=== PATIENT | female | born 1945 ===

== ENCOUNTER 2021-10-18 13:05 | Inpatient (IN) | payer OTHER ==
[~2021-10-18] VITALS: Ht 167.6 cm; Wt 39.0 kg
[2021-10-18 13:32] LABS: PCO2 Arterial 44.5 mmHg (35-45); PO2 Arterial 64.8 mmHg (80-100); pH Blood Arterial 7.39 (7.35-7.45)
[2021-10-18 13:40] LABS: BASOPHILS ABSOLUTE AUTO 0.07 K/mm3 (0.00-0.23); BASOPHILS PERCENT AUTO 1 % (0-2); EOSINOPHILS ABSOLUTE AUTO 0.07 K/mm3 (0.00-0.68); EOSINOPHILS PERCENT AUTO 1 % (0-6); Hematocrit 43.9 % (33.0-51.0); Hemoglobin 13.2 g/dL (11.5-16.0); IMMATURE GRAN ABSOLUTE AUTO 0.03 K/mm3 (0.00-0.10); IMMATURE GRAN PERCENT AUTO 0 % (0-1); LYMPHOCYTES ABSOLUTE AUTO 1.65 K/mm3 (0.84-5.20); LYMPHOCYTES PERCENT AUTO 16 % (21-46); MONOCYTES ABSOLUTE AUTO 0.58 K/mm3 (0.16-1.47); MONOCYTES PERCENT AUTO 6 % (4-13); Mean Corpuscular HGB 29.7 pg (26.0-34.0); Mean Corpuscular HGB Conc 30.1 g/dL (31.5-36.5); Mean Corpuscular Volume 99 fL (80-100); Mean Platelet Volume 10.4 fL (9.1-12.4); NEUTROPHILS ABSOLUTE AUTO 7.82 K/mm3 (1.96-9.15); NEUTROPHILS PERCENT AUTO 77 % (41-73); Platelet Count 323 K/mm3 (150-400); RDW Coefficient Variation 13.4 % (11.7-14.2); RDW Standard Deviation 49.2 fL (35.1-46.3); Red Blood Cell Count 4.44 M/mm3 (3.80-5.20); White Blood Cell Count 10.22 K/mm3 (4.00-11.30)
[2021-10-18 13:48] LABS: Albumin, Blood 2.5 g/dL (3.4-5.0); Albumin/Globulin Ratio 0.5 (0.8-1.8); Bilirubin, Total 0.7 mg/dL (0.1-1.0); Bun/Creatinine Ratio 41.1 (12.0-20.0); Calcium, Blood 9.4 mg/dL (8.5-10.1); Creatinine, Blood 1.07 mg/dL (0.40-1.00); Globulin, Blood 4.8 g/dL (2.2-4.0); Potassium, Blood 4.3 mmol/L (3.5-5.5); Total Protein, Blood 7.3 g/dL (6.4-8.2)
[2021-10-18] MEDS ORDERED: MEMA5TAB PO (13:53)
[2021-10-18] MEDS ORDERED: DONEPEZIL HCL10 MG PO (13:53)
[2021-10-18 14:00] LABS: Appearance, Urine Clear (Clear); Bilirubin, Urine Neg (Neg); Blood, Urine 4+ (Neg); Color, Urine Yellow (P-Yellow); Glucose Qualitative, Urine Neg (Neg); Ketones, Urine Neg (Neg); Leukocyte Esterase, Urine 3+ (Neg); Nitrite, Urine Neg (Neg); Protein, Urine 2+ (Neg); Specific Gravity, Urine 1.015 (1.003-1.022); Urobilinogen, Urine NORM (Normal)
[2021-10-18 14:35] LABS: Hyaline Casts 0-2 /lpf (0-2); WBC Cast Rare /lpf (0)
[2021-10-18 14:36] LABS: Bacteria Many /hpf; Squamous Epithelial Cells Few /hpf (Few)
[2021-10-18 14:57] LABS: Influenza A, PCR NEGATIVE (NEGATIVE); Influenza B, PCR NEGATIVE (NEGATIVE); Resp Syncytial Virus, PCR NEGATIVE (NEGATIVE); SARS-Cov-2 (COVID-19) PCR, MMC NEGATIVE (NEGATIVE)
[2021-10-19 02:12] LABS: BASOPHILS ABSOLUTE AUTO 0.06 K/mm3 (0.00-0.23); BASOPHILS PERCENT AUTO 1 % (0-2); EOSINOPHILS PERCENT AUTO 0 % (0-6); Hematocrit 39.1 % (33.0-51.0); Hemoglobin 12.1 g/dL (11.5-16.0); IMMATURE GRAN ABSOLUTE AUTO 0.03 K/mm3 (0.00-0.10); IMMATURE GRAN PERCENT AUTO 0 % (0-1); LYMPHOCYTES ABSOLUTE AUTO 0.76 K/mm3 (0.84-5.20); LYMPHOCYTES PERCENT AUTO 8 % (21-46); MONOCYTES ABSOLUTE AUTO 0.49 K/mm3 (0.16-1.47); MONOCYTES PERCENT AUTO 5 % (4-13); Mean Corpuscular HGB 29.6 pg (26.0-34.0); Mean Corpuscular HGB Conc 30.9 g/dL (31.5-36.5); Mean Corpuscular Volume 96 fL (80-100); Mean Platelet Volume 10.1 fL (9.1-12.4); NEUTROPHILS ABSOLUTE AUTO 8.61 K/mm3 (1.96-9.15); NEUTROPHILS PERCENT AUTO 87 % (41-73); Platelet Count 254 K/mm3 (150-400); RDW Coefficient Variation 13.3 % (11.7-14.2); RDW Standard Deviation 47.5 fL (35.1-46.3); Red Blood Cell Count 4.09 M/mm3 (3.80-5.20); White Blood Cell Count 9.95 K/mm3 (4.00-11.30)
[2021-10-19 03:00] LABS: Alanine Aminotransfer (ALT/SGP 79 U/L (12-78); Albumin, Blood 2.1 g/dL (3.4-5.0); Albumin/Globulin Ratio 0.5 (0.8-1.8); Alk Phos 183 U/L (50-136); Anion Gap 6 mmol/L (6-16); Aspartate Aminotrans (AST/SGOT 53 U/L (12-37); Bilirubin, Total 0.7 mg/dL (0.1-1.0); Blood Urea Nitrogen 37 mg/dL (8-24); Bun/Creatinine Ratio 38.1 (12.0-20.0); CO2, Blood 28 mmol/L (21-32); Calcium, Blood 8.5 mg/dL (8.5-10.1); Chloride, Blood 124 mmol/L (98-108); Creatinine, Blood 0.97 mg/dL (0.40-1.00); Globulin, Blood 4.3 g/dL (2.2-4.0); Glomerular Filtration Rate 56 (60-); Glucose, Blood 155 mg/dL (70-99); Potassium, Blood 3.4 mmol/L (3.5-5.5); Sodium, Blood 158 mmol/L (136-145); Total Protein, Blood 6.4 g/dL (6.4-8.2); Troponin I <0.015 ng/mL (0.000-0.040)
--- NOTE | 2021-10-19 03:30 | NUR ---
PT RESITNG IN BED NON-VERBAL. VSS. NO ACUTE CHANGES IN STATUS. MEDS GIVEN PER MAR. IVF INFUSING. TURNED AND REPOSIITONED FOR COMFORT. BED ALARM EXIT ON. WILL CONTINUE TO MONITOR.
--- NOTE | 2021-10-19 05:35 | NUR ---
PT WAS CONGESTED. SUCTIONED BY RT. NO DISTRESS NOTED. VSS. ON O2 4L. SATS 96%.
--- NOTE | 2021-10-19 17:30 | NUR ---
Dr Christiansen met with pt today for hospice plan.
--- NOTE | 2021-10-19 18:40 | NUR ---
PT IS NON VERBAL.PT HAS BLE WOUND ON SHOULDERS,KNEES AND BRUISSES T/O MEPILEX IN PLACE.PT ALSO HAVE SOAR ON BUTTOCKS MEPILEX IN PLACE.PT AT BEDSIDE.PT IN BED,BED IN LOW POSITION,ALARM ON,PT IS INCONTINENT OF URINE AND BOWELS.CALL LIGHT IN REACH WILL CONTINUE TO MONITOR.
--- NOTE | 2021-10-20 05:49 | NUR ---
VSS. PT ON 3LNC WITH SATS >96%. NO SOB NOTED. PRN ORAL SUCTION PERFORMED.BED IN LOW POSITION CALL LIGHT IN REACH
[2021-10-20 06:17] LABS: Anion Gap 7 mmol/L (6-16); Blood Urea Nitrogen 26 mg/dL (8-24); CO2, Blood 27 mmol/L (21-32); Calcium, Blood 8.5 mg/dL (8.5-10.1); Chloride, Blood 117 mmol/L (98-108); Creatinine, Blood 0.74 mg/dL (0.40-1.00); Glomerular Filtration Rate >60 (60-); Glucose, Blood 140 mg/dL (70-99); Potassium, Blood 3.6 mmol/L (3.5-5.5); Sodium, Blood 151 mmol/L (136-145)
--- NOTE | 2021-10-20 19:09 | NUR ---
PT HAS NO ACUTE EVENTS T/O THIS SHIFT.PT ON 2L NC SATS IN 90S,PT ASSESSMENT REMAINS UNCHANGED,PT IN BED,CALL LIGHT IN REACH WILL CONTINUE TO MONITOR.
--- NOTE | 2021-10-21 05:12 | NUR ---
PT VSS. PT ANSWERS TO YES/NO QUESTIONS AT TIMES. 2LNC WITH O2 SATS >96. ORAL SUCTION PRN. NO BM THIS SHIFT.BED IN LOWEST POSTION WITH HOB ELEVATED.CALL LIGHT IN REACH
[2021-10-21 06:24] LABS: Anion Gap 8 mmol/L (6-16); Blood Urea Nitrogen 18 mg/dL (8-24); Bun/Creatinine Ratio 29.8 (12.0-20.0); CO2, Blood 27 mmol/L (21-32); Calcium, Blood 8.1 mg/dL (8.5-10.1); Chloride, Blood 109 mmol/L (98-108); Creatinine, Blood 0.61 mg/dL (0.40-1.00); Glomerular Filtration Rate >60 (60-); Glucose, Blood 116 mg/dL (70-99); Sodium, Blood 144 mmol/L (136-145)
--- NOTE | 2021-10-21 12:03 | NUR ---
Received referral from nurse director career (Robin Penaloza) on 10/21/2021. Patient is to discharge with orders for hospice and family elected [facility]. Gathered supporting documentation for referral (face sheet, labs, imaging, progress notes, palliative care note, and H&P) and sent to [facility] box car washer (Efren Pina) for review of hospice appropriateness and ability to accept patient onto service post discharge. Will await further information from hospice box car washer regarding the above. Ilda Land Referral Liaison
--- NOTE | 2021-10-21 15:19 | NUR ---
Received notification from [facility] fruit sorter (Efren Pina) that patient is hospice appropriate and able to be accepted onto service post discharge. Will attempt to meet with patient and/or family today to further discuss the above. Will continue to monitor and follow for discharge. Ilda Land Referral Liaison
--- NOTE | 2021-10-21 18:35 | NUR ---
PT IS BED BOUND,PT ASSESSMENT REMAINS UNCHANGED,PT HERNANDEZ NO ACUTE EVENTS T/O THIS SHIFT,PT HAVE WOUNDS ON BLE SHOULDERS AND KNEE,MEPILEX IN PLACE,BED SOAR ON THE COCCYX,COVERED WITH MEPILEX,AND PT ADMITTED TO MEDICAL FLOOR WITH ALL THESE WOUNDS,PT ON 2L NC SATS IN 90S,PT IS STILL ON ASPIRATION PRECAUTIONS.PT IN BED,CALL LIGHT IN REACH WILL CONTINUE TO MONITOR.
--- NOTE | 2021-10-22 04:38 | NUR ---
SUMMARY NO NEW CHANGES NOTED. PT HAS BEEN SLEEPING COMFORTABLY T/O SHIFT. CALL LIGHT IN REACH AND BED ALARM ON.
[2021-10-22 06:24] LABS: Anion Gap 7 mmol/L (6-16); Blood Urea Nitrogen 12 mg/dL (8-24); Bun/Creatinine Ratio 19.4 (12.0-20.0); CO2, Blood 26 mmol/L (21-32); Calcium, Blood 8.5 mg/dL (8.5-10.1); Chloride, Blood 110 mmol/L (98-108); Creatinine, Blood 0.62 mg/dL (0.40-1.00); Glomerular Filtration Rate >60 (60-); Glucose, Blood 88 mg/dL (70-99); Potassium, Blood 3.8 mmol/L (3.5-5.5); Sodium, Blood 143 mmol/L (136-145)
--- NOTE | 2021-10-22 12:57 | NUR ---
Met pt. inn bed unable to speak good enough the was in the room I offered prayers and anointed pt.
--- NOTE | 2021-10-22 16:34 | NUR ---
Late Entry from 10/22/2021 at 0940: Met with patient's ([place]) to further discuss hospice services and the election of [facility]. Patient's is agreeable to the above. Discussed what hospice is (reserved for patients with a terminal diagnosis with life expectancy of 6 months or less). Discussed that some patients exceed the 6 months expectancy and stay on service and some patients stabilize and come off hospice. Patient's verbalized understanding of the above. Discussed with patient's that hospice service focuses on quality of life at the end of life and that rather than measuring the quantity of days, the quality of those days would be measured. Discussed with patient's that with hospice service the goal would be to keep the patient out of the hospital and comfortable by managing symptoms at home. Patient's verbalized understanding. Discussed the people, prescriptions, and equipment of hospice. People- discussed the team of people and their roles (RNs, chaplains, therapists, LCSWs, CNAs, and volunteers) that would be there to support not only the patient but also their family during this time. Explained to the patient's that the team would be custom tailored to the patient and family's needs during this time. Patient's verbalized understanding. Prescriptions- discussed that we utilize a mail order pharmacy ([facility]) to provide medications related to the hospice diagnosis and for symptom management. All other medications that patient chose to stay on would be patient's and/or patient's family's responsibility to provide and pay for. Patient's verbalized understanding. Discussed that upon discharge patient would be given three prescriptions, one for morphine 20mg/mL #30mL (0.25mL - 1mL PO/SL Q1H PRN SOB/pain), one for lorazepam 0.5mg #20 (1 - 2 PO Q4H PRN anxiety), and one for hyoscyamine 0.125mg SL tablets #30 (1 SL Q2H PRN secretions). Explained to the patient's that as patient would not yet be admitted to hospice service at the time of discharge those prescriptions would be patient/patient's family's responsibility to fill and pay for. Patient's verbalized understanding. Equipment- discussed with patient's that we contract through [employer] to provide DME such as hospital beds, commodes, etc. to patient. Initially patient's wanted admitting RN to assess for DME needs. However, further discussion with patient's regarding oxygen needs. Patient does not currently have oxygen services at home. As such, wrote order for supplemental oxygen (at 1-5 LPM) and sent to [facility] for delivery on Thursday- 10/23/2021. Patient's would still like admitting RN to assess for any additional DME needs upon admission. Discussed with patient's that once patient was admitted onto hospice services the goal would be for them to contact us ([facility]) over contacting 911 or presenting back to the hospital/ED. Patient's verbalized understanding. Discussed the tentative discharge plans for Thursday- at 1030 with preferred mode of transportation- medical transport via gurney. Explained to patient's that I would arrange transportation for patient. Patient's verbalized understanding. Offered a chance for patient's to ask questions regarding the above of which there were none. Will continue to monitor and follow as appropriate for discharge. Ilda Land Referral Liaison
--- NOTE | 2021-10-23 04:34 | NUR ---
SUMMARY NO NEW ISSUES NOTED. PT HAS BEEN SLEEPING T/O SHIFT. PT HAS BEEN VOIDING WITH NOTED BM SMEAR. PT CURRENTLY SLEEPING AND IN NO DISTRESS. CALL LIGHT IN REACH AND BED ALARM ON.
[2021-10-23] MEDS ORDERED: MORP20L PO (10:30)
[2021-10-23] MEDS ORDERED: Ativan1 MG PO (10:31)
--- NOTE | 2021-10-23 10:31 | NUR ---
Patient is to discharge at 1030 with orders for hospice. Contacted [facility] ([facility]) to arrange gurney transport to patient's residence. Pick-up at 1130 will be provided by the above. Faxed copy of face sheet, PCS form, and DNR status to [facility] office per protocol. Placed copies of the above in nurse water server for transportation program director. Notified [facility] (Gladys Garcia), Charge RNs (Linnea Stein and Nae Grijalva), and bedside RN (Harsha Erickson) of the above. All are agreeable to the above. Requested discharge orders from hospitalist (Dr. Mac). Provided hard copy prescriptions for morphine and lorazepam to patient's ([place]) on Thursday- 10/22/2021. Faxed copies of discharge order and med list to [facility] cutter hand. No further interventions required. Ilda Land Referral Liaison
--- NOTE | 2021-10-23 10:57 | NUR ---
DISCHARGE SUMMARY PT DISCHARGE TO HOME WITH HOSPICE THIS SHIFT AT APPROX 1048 VIA AMBULANCE SERVICE. PT's PRESENT DURING DISCHARGE PROCESS. PT AND FAMILY VERBALIZED UNDERSTANDING OF DISCHARGE ORDERS. PT APPEARED CALM AND COMFORTABLE THROUGHOUT DISCHARGE PROCESS. NO S/S OF PAIN OR ANY DISCOMFORT NOTED T/O SHIFT.
== END 2021-10-23 10:56 | disposition hospice, home (50) | DRG 871 ==
LOC: EDBD 13:05 → ER 13:05 → MEDS 15:33 → ERHOLD 15:33 → MEDS 18:54
PROVIDERS: Nurse Practitioner Acute Care; Student in an Organized Health Care Education/Training Program; ADMIT Internal Medicine
DX: A41.9 Sepsis, unspecified organism (principal); J96.01 Acute respiratory failure with hypoxia; J69.0 Pneumonitis due to inhalation of food and vomit; R64 Cachexia; Z68.1 Body mass index [BMI] 19.9 or less, adult; E87.0 Hyperosmolality and hypernatremia; N17.9 Acute kidney failure, unspecified; N39.0 Urinary tract infection, site not specified; Z66 Do not resuscitate; Z20.822 Contact with and (suspected) exposure to COVID-19; R65.20 Severe sepsis without septic shock; G30.9 Alzheimer's disease, unspecified; F02.80 Dementia in other diseases classified elsewhere, unspecified severity, without behavioral disturbance, psychotic disturbance, mood disturbance, and anxiety; B96.20 Unspecified Escherichia coli [E. coli] as the cause of diseases classified elsewhere; Z74.01 Bed confinement status; L89.109 Pressure ulcer of unspecified part of back, unspecified stage; L89.121 Pressure ulcer of left upper back, stage 1; L89.111 Pressure ulcer of right upper back, stage 1; L89.891 Pressure ulcer of other site, stage 1; R74.01 Elevation of levels of liver transaminase levels; Z79.899 Other long term (current) drug therapy
CPT/HCPCS: 0241U; 31720; 36415; 36600; 70450; 71045; 80048; 80053; 81001; 82803; 83605; 83735; 83880; 84295; 84484; 85025; 85520; 87040; 87077; 87086; 87186; 92526; 92610; 93005; 93010; 94760; 94762; 96365; 96368; 96375; 99285-25; J0295; J0456; J0696; J2543; J3010; J3370; J3480; J7030; J7050; J7060; J7070